=== PATIENT | male | born 1985 | race Caucasian/White ===

== ENCOUNTER 2023-02-27 09:41 | Outpatient (REF) | payer OTHER, SELFPAY ==
[2023-02-27 11:31] LABS: MANUAL DIFF FLAG NO
[2023-02-27 11:38] LABS: Appearance Urine Clear; Basophils Absolute Auto 0.1 X10*3/uL (0.0-0.2); Basophils Percent Auto 1.1 % (0-2); Color Urine Yellow; Eosinophils Absolute Auto 0.2 X10*3/uL (0.0-0.4); Eosinophils Percent Auto 3.4 % (0-4); Glucose Urine UA Negative (Negative); Hemoglobin 13.8 g/dl (14.0-18.0); Imm Gran Abs Auto 0.03 X10*3/uL (0.00-0.03); Imm Gran Pct Auto 0.5 % (0.0-0.4); Leukocyte Esterase Urine Negative (Negative); Lymphocytes Absolute Auto 1.6 X10*3/uL (1.2-4.9); Lymphocytes Percent Auto 25.2 % (20-40); Mean Corpuscular HGB Conc 34.5 g/dl (31.0-36.0); Mean Corpuscular Hemoglobin 27.5 pg (27.0-33.0); Mean Corpuscular Volume 79.8 fL (80.0-98.0); Mean Platelet Volume 9.7 fL (9.4-12.4); Monocytes Absolute Auto 0.7 X10*3/uL (0.1-1.2); Monocytes Percent Auto 10.3 % (2-11); Neutrophils Absolute Auto 3.9 x10*3/uL (2.0-8.3); Neutrophils Percent Auto 59.5 % (45-73); Nitrite Urine Negative (Negative); PH 6.5 (5.0-9.0); Platelet Count 274 X10*3/uL (160-400); Red Blood Count 5.01 X10*6/uL (4.60-5.80); Red Cell Distribution Width 11.7 % (11.0-16.0); Specific Gravity - Urine <= 1.005 (1.005-1.025); Urine Blood Negative (Negative); Urine Ketones Negative (Negative); Urine Protein Negative (Neg-Trace); White Blood Count 6.5 X10*3/uL (4.8-10.8)
[2023-02-27 13:00] LABS: Alanine Aminotransferase 58 U/L (0-40); Albumin Level 4.1 g/dL (3.5-5.0); Alkaline Phosphatase 75 U/L (39-117); Anion Gap 11 (12-20); Aspartate Amino Transferase 27 U/L (5-37); Bilirubin Total 1.1 mg/dL (0.0-1.0); Blood Urea Nitrogen 12 mg/dL (9-16); Carbon Dioxide 27 mmol/L (22-29); Chloride 103 mmol/L (96-108); Cholesterol 198 mg/dL; Estimated Glomerular Filt Rate > 60; Glucose Fasting 83 mg/dL (60-99); HDL Cholesterol 32 mg/dL; LDL Cholesterol Calculated 115 mg/dl; Potassium 3.9 mmol/L (3.3-5.1); Sodium 137 mmol/L (135-145); Total Protein 6.8 g/dL (6.5-8.0); Triglycerides 255 mg/dL
[2023-02-27 13:04] LABS: TSH reflex Free T4 1.25 uIU/mL (0.32-4.0)
== END 2023-02-27 09:42 | disposition home or self-care (01) ==
LOC: HO.HMGCLDS 09:41
PROVIDERS: PCP Nurse Practitioner Family; Visit Provider Nurse Practitioner Family
DX: Z00.00 Encounter for general adult medical examination without abnormal findings (principal)
CPT/HCPCS: 36415; 80053; 80061; 81003; 84443; 85025

== ENCOUNTER 2024-02-10 11:25 | Outpatient (AMB) | payer OTHER, SELFPAY ==
[2024-02-10 11:27] VITALS: BP 118/70; PULSE 62; TEMP 37.1; O2SAT 98
--- NOTE | 2024-02-10 11:27 | AM.OFFWIN_ITS ---
Intake Vital Signs 02/10/24 11:27 Height 6 ft BP 118/70 Blood Pressure Location Lt brachial Position Sitting Pulse 62 Pulse Source Pulse Oximeter Temp 98.7 F Temp Source Oral Pulse Oximetry (%) 98 Oxygen Delivery Method Room Air Intake Visit Reasons: EP mosquito bite allergic reaction face swollen Intake Note: pt is here for allergic reaction to mosquito bite. bite happened on face causing swelling Patient Tobacco Use Status: Never used Tobacco Allergies No Known Allergies Allergy (Verified 02/10/24 11:28) Do you need a note to return to daycare/school/sports/work: Yes HPI EP mosquito bite allergic reaction face swollen HPI Details This is a 38-year-old male patient who presents today with facial swelling and itching due to report of multiple insect bites to his face. He suspects these were mosquito bites, as a similar reaction has happened in the past. He states that this started Thursday, and facial swelling has worsened. He also reports a bite on his foreskin which has also resulted in swelling. He denies any shortness of breath, wheezing, or respiratory symptoms. He states that he took a Benadryl this morning with minimal relief. [facility] Social History Housing: Condominium Patient Tobacco Use Status: Never used Tobacco e-Cigarette/Vaping Use: Never Used Second Hand Smoke Exposure: No service: No Current occupational status: employed Current occupation: [employer] Current occupational exposures/hazards: No Cognitive needs: No Hearing needs: No Vision needs: No Review of Systems Const All systems reviewed & are unremarkable except as noted in HPI and below Physical Exam Vital Signs: Last Vital Signs Temp 98.7 F 02/10/24 11:27 Pulse 62 02/10/24 11:27 BP 118/70 02/10/24 11:27 Pulse Ox 98 02/10/24 11:27 Oxygen Delivery Method Room Air 02/10/24 11:27 Const General: cooperative HEENT Other: significant facial swelling, particularly around eyes and cheeks. Ears: hearing grossly normal bilaterally General nose exam: Normal external nose present and Normal nasal mucous membranes and turbinates present Mouth: Normal oral and palatal mucosa present Throat: Yes posterior oropharynx normal Neck Neck: Yes no lymphadenopathy Resp Effort & Inspection: normal respiratory effort Auscultation: clear to auscultation bilaterally Cardio Rate: regular rate Rhythm: regular rhythm Skin Other: mild erythematous rash on upper arms Extrem General: Yes capillary refill normal and Yes no clubbing, cyanosis or edema Psych Appearance: grossly normal Mental Status: mental status grossly normal Speech and movement: Normal speech and movement present Assessment & Plan Assessment & Plan (1) Allergic reaction to insect bite: Code(s): Z91.038 - Other insect allergy status Plan: Will start patient on prednisone taper for allergic reaction. He has taken this previously, without negative side effects. We reviewed indications, use, potential side effects of medication. I also encouraged him to continue to utilize Benadryl at bedtime. If he does not improve with treatment, or if symptoms worsen/new symptoms develop, particularly any respiratory symptoms, he should go to the emergency department for further evaluation. Patient verbalizes understanding and agrees to plan. Medications: New prednisone Take 4 tabs for two days, then take 3 tabs for two days, then take 2 tabs for two days, then take 1 tab for 2 days. 10 mg PO DAILY 20 tabs 0RF Z91.038 - Other insect allergy status Coding Level of Care Code Est Pt Level 4 (29380) Diagnoses Allergic reaction to insect bite Z91.038
== END 2024-02-10 11:46 | disposition home or self-care (01) ==
PROVIDERS: PCP Nurse Practitioner Family; Visit Provider Nurse Practitioner Family
DX: Z91.038 Other insect allergy status (principal)
CPT/HCPCS: 99214

== ENCOUNTER 2024-02-17 14:27 | Outpatient (AMB) | payer OTHER, SELFPAY ==
--- NOTE | 2024-02-17 14:35 | MHC.PC.OV ---
Vital Signs 02/17/24 14:39 Height 6 ft Weight 226 lb BMI 30.6 BP 130/88 Blood Pressure Location Lt brachial Position Sitting Pulse 57 Pulse Source Pulse Oximeter Pulse Oximetry (%) 95 Oxygen Delivery Method Room Air Intake Visit Reasons: PE Intake Note: Patient here for physical exam. Allergies No Known Allergies Allergy (Verified 02/17/24 14:54) Tobacco use date assessed: 02/17/24 Dental Screening Dental Screen Date: 02/17/24 Did you have a dental visit in the last 12 months?: Yes Did you have a dental problem in the last 6 months where you did not have access to dental care?: No Was dental information given to patient?: Patient has dentist HPI PE HPI Details Pt is here for a PE. Will order labs. Pt c/o facial swelling and redness to his BUE, bilat upper chest, lumbar region, right flank, and face. He reports being bitten by what he thinks was a mosquito and noticing symptoms after. Pt's mom reportedly has had similar reactions. Pt was seen in the walk-in for this on 02/09 and was given prednisone. He reports that his symptoms are decreasing but are still present. Will send 12 day prednisone taper. Pt has not had any shortness of breath with these symptoms at any point. [facility] Social History Housing: Condominium Patient Tobacco Use Status: Never used Tobacco e-Cigarette/Vaping Use: Never Used Second Hand Smoke Exposure: No service: No Current occupational status: employed Current occupation: [employer] Current occupational exposures/hazards: No Cognitive needs: No Hearing needs: No Vision needs: No Questionnaire PHQ-9 Over the last 2 weeks, how often have you been bothered by any of the following problems? 07376 - PHQ-9 Billing: Patient declined-do not bill Source: Developed by Drs. Charles Marmolejo, Annita Mays, Samuel Sheffield and colleagues, with an educational gemma from [employer]. AUDIT C Alcohol Use Questionnaire (AUDIT-C) 1. How often do you have a drink containing alcohol?: Never 3. How often do you have six or more drinks on one occasion?: Never Total Score: 0 Score Reviewed/Action Taken: No ZULY-7 AMB Questionnaire ZULY-7 Assessment Billing ZULY-7 Assessment Tool: pt declined-do not bill Review of Systems Const Denies chills and Denies fever(s) Eyes Denies blurry vision ENT Denies vertigo, Denies dizziness and Denies sore throat Card Denies chest pain at rest, Denies chest pain with activity, Denies diaphoresis, Denies dyspnea and Denies dyspnea on exertion Resp Denies cough, Denies dyspnea, Denies dyspnea on exertion and Denies wheezing GI Denies abdominal pain, Denies melena, Denies hematochezia, Denies constipation, Denies diarrhea and Denies loose stools Denies hematuria Musc Denies numbness and Denies tingling Skin/Breast Denies lesions Neuro Denies vertigo, Denies dizziness, Denies numbness and Denies tingling Psych Denies anxiety, Denies depression, Denies homicidal ideation, Denies suicidal ideation and Denies other (substance abuse) Aller/Immun Denies wheezing Physical exam (Primary Care) Vital Signs: Last Vital Signs Pulse 57 02/17/24 14:39 BP 130/88 02/17/24 14:39 Pulse Ox 95 02/17/24 14:39 Oxygen Delivery Method Room Air 02/17/24 14:39 BMI result Body Mass Index 30.6 Tobacco/Smoking Status: Tobacco use Status Tobacco use date assessed 02/17/24 02/17/24 14:42 Patient Tobacco Use Status Never used Tobacco 02/17/24 14:36 e-Cigarette/Vaping Use Never Used 02/17/24 14:36 Const General: cooperative Nutritional Appearance: well nourished Orientation/consciousness: patient oriented x3 HENMT Head: Yes normal to inspection, Yes normocephalic and Yes atraumatic Ears: TM's normal bilaterally Eyes General: appearance normal, both eyes and all related structures Alignment and Position: alignment normal and position normal Neck Neck: Yes normal visual inspection and Yes no lymphadenopathy Thyroid: Thyroid normal Resp Effort & Inspection: normal respiratory effort Auscultation: clear to auscultation bilaterally Cardio Rate: regular rate Rhythm: regular rhythm Heart sounds: S1 normal heart sound present, S2 normal heart sound present and no murmurs GI Palpation (GI): Soft to palpation and nontender Auscultation: normal bowel sounds Male General Exam: Yes normal external exam Penis: normal penis Scrotum: scrotum normal, testes descended bilaterally and no inguinal hernias Testes: no testicular mass Skin Other: left bicep with macular erythema, more macular papular patch of erythema to left upper chest, faded macular patch to right upper chest, macular patch to upper lumbar region, macular erythema to left tricep region, macular erythema to right flank, macular dry erythema to right facial cheek Neuro General: patient oriented x3, moves all extremities, no focal motor deficits and deep tendon reflexes 2+ bilaterally Romberg Test: Negative Psych Appearance: grossly normal Mental Status: mental status grossly normal Speech and movement: Normal speech and movement present Affect: normal affect Attitude: cooperative Thought process: Normal thought process present Thought content: Normal thought content present Insight: Good insight present (Psych) Judgement: Good judgement present (Psych) Assessment and Plan Assessment & Plan (1) Encounter for routine adult physical exam with abnormal findings: Code(s): Z00.01 - Encounter for general adult medical examination with abnormal findings (2) Allergic reaction: Code(s): T78.40XA - Allergy, unspecified, initial encounter Plan: prednisone sent (original course helped). Pt knows to contact immediate medical assistance with s/s of anaphylaxis. Plan The patient agreed to the use of a medical and health services manager for this encounter. Scribed for WALI Perez-BC by Angi Lockhart medical and health services manager, on 02/17/2024 at 14:45 EST. Orders: Orders Complete Blood Count Auto Diff Today Z00. - Encounter for general adult medical examination with abnormal findings Comprehensive [place]. Panel Fast Today Z00. - Encounter for general adult medical examination with abnormal findings UA CC w/rflx Micro + Cult Today Z00. - Encounter for general adult medical examination with abnormal findings TSH reflex Free T4 Today Z00. - Encounter for general adult medical examination with abnormal findings Lipid Panel Today Z00. - Encounter for general adult medical examination with abnormal findings Medications: Changed From prednisone Take 4 tabs for two days, then take 3 tabs for two days, then take 2 tabs for two days, then take 1 tab for 2 days. 10 mg PO DAILY 20 tabs 0RF Z91.038 - Other insect allergy status To prednisone Take 6 tabs for 2 days, 5 tabs for 2 days, 4 tabs for two days, then take 3 tabs for two days, then take 2 tabs for two days, then take 1 tab for 2 days. 10 mg PO DAILY 12 days 42 tabs 0RF Z91.038 - Other insect allergy status Coding Level of Care Code Est Pt Prev Care 18-39y(03632) Diagnoses Encounter for routine adult physical exam with abnormal findings Z00.01 Allergic reaction T78.40XA
[2024-02-17 14:39] VITALS: BP 130/88; PULSE 57; O2SAT 95; BMI 30.6
== END 2024-02-17 15:19 | disposition home or self-care (01) ==
PROVIDERS: Visit Provider Nurse Practitioner Family
DX: Z00.01 Encounter for general adult medical examination with abnormal findings (principal); T78.40XA Allergy, unspecified, initial encounter
CPT/HCPCS: 99213; 99395

== ENCOUNTER 2024-03-07 08:10 | Outpatient (REF) | payer OTHER, SELFPAY ==
[2024-03-07 10:14] LABS: MANUAL DIFF FLAG NO
[2024-03-07 10:17] LABS: Basophils Percent Auto 0.6 % (0-2); Eosinophils Absolute Auto 0.3 X10*3/uL (0.0-0.4); Hematocrit 41.7 % (42.0-52.0); Hemoglobin 14.5 g/dl (14.0-18.0); Imm Gran Abs Auto 0.02 X10*3/uL (0.00-0.03); Imm Gran Pct Auto 0.4 % (0.0-0.4); Lymphocytes Absolute Auto 1.5 X10*3/uL (1.2-4.9); Mean Corpuscular HGB Conc 34.8 g/dl (31.0-36.0); Mean Corpuscular Hemoglobin 28.2 pg (27.0-33.0); Mean Corpuscular Volume 81.1 fL (80.0-98.0); Mean Platelet Volume 9.7 fL (9.4-12.4); Monocytes Absolute Auto 0.6 X10*3/uL (0.1-1.2); Neutrophils Absolute Auto 2.8 x10*3/uL (2.0-8.3); Platelet Count 272 X10*3/uL (160-400); Red Blood Count 5.14 X10*6/uL (4.60-5.80); Red Cell Distribution Width 11.6 % (11.0-16.0); White Blood Count 5.2 X10*3/uL (4.8-10.8)
[2024-03-07 10:21] LABS: Appearance Urine Clear; Color Urine Yellow; Glucose Urine UA Negative (Negative); Leukocyte Esterase Urine Negative (Negative); Nitrite Urine Negative (Negative); Specific Gravity - Urine 1.015 (1.005-1.025); Urine Blood Negative (Negative); Urine Ketones Negative (Negative); Urine Protein Negative (Neg-Trace)
[2024-03-07 10:49] LABS: Alanine Aminotransferase 46 U/L (0-40); Albumin Level 4.3 g/dL (3.5-5.0); Alkaline Phosphatase 70 U/L (39-117); Anion Gap 12 (12-20); Aspartate Amino Transferase 26 U/L (5-37); Bilirubin Total 1.2 mg/dL (0.0-1.0); Blood Urea Nitrogen 15 mg/dL (9-16); Calcium 9.6 mg/dL (8.4-10.2); Carbon Dioxide 27 mmol/L (22-29); Chloride 105 mmol/L (96-108); Cholesterol 222 mg/dL (<200); Estimated Glomerular Filt Rate > 60; Glucose Fasting 92 mg/dL (60-99); HDL Cholesterol 37 mg/dL (>40); LDL Cholesterol Calculated 154 mg/dL (<100); Potassium 3.9 mmol/L (3.3-5.1); Sodium 140 mmol/L (135-145); TSH reflex Free T4 1.38 uIU/mL (0.32-4.0); Triglycerides 157 mg/dL (<150)
== END 2024-03-07 08:11 | disposition home or self-care (01) ==
LOC: HO.HMGCLDS 08:10
PROVIDERS: PCP Nurse Practitioner Family; Visit Provider Nurse Practitioner Family
DX: Z00.01 Encounter for general adult medical examination with abnormal findings (principal)
CPT/HCPCS: 36415; 80053; 80061; 81003; 84443; 85025

== ENCOUNTER 2024-04-04 08:24 | Outpatient (REF) | payer OTHER, SELFPAY ==
--- NOTE | ~2024-04-04 | US_ITS ---
EXAMINATION: US ABDOMEN COMPLETE CLINICAL INFORMATION: Abnormal levels of other serum enzymes. COMPARISON: None available. TECHNIQUE: Real-time imaging of the abdominal viscera. FINDINGS: PANCREAS: Normal. ABDOMINAL AORTA: The proximal, mid, and distal segments are normal in caliber. INFERIOR VENA CAVA: Visualized portions are normal. LIVER: The liver is normal in size. The liver contour is normal. Diffuse increased echogenicity consistent with fatty infiltration. No focal hepatic lesion. There is no intrahepatic biliary duct dilatation seen. GALLBLADDER: Normal. The gallbladder is physiologically distended without evidence of stones, sludge, polyps, wall thickening or pericholecystic fluid. COMMON BILE DUCT: Normal in caliber measuring 0.2 cm in diameter. RIGHT KIDNEY: Normal. No hydronephrosis. No renal calculi or focal parenchymal lesions. The kidney measures 11.4 cm in maximum dimension. LEFT KIDNEY: Normal. No hydronephrosis. No renal calculi or focal parenchymal lesions. The kidney measures 11.5 cm in maximum dimension. SPLEEN: Normal. The spleen measures 12.0 cm in maximum dimension. FREE FLUID: None. US/US abdomen complete IMPRESSION: Hepatic steatosis. No focal lesion. No biliary ductal dilatation. Electronically signed by: Freedom Solis MD 04/22/2024 02:36 PM EDT
== END 2024-04-04 08:25 | disposition home or self-care (01) ==
LOC: HO.US 08:24
PROVIDERS: PCP Nurse Practitioner Family; Visit Provider Nurse Practitioner Family
DX: R74.8 Abnormal levels of other serum enzymes (principal)
CPT/HCPCS: 76700

== ENCOUNTER 2025-03-13 15:05 | Outpatient (AMB) | payer OTHER, SELFPAY ==
[2025-03-13 15:10] VITALS: BP 130/88; PULSE 60; RESP 16; TEMP 36.9; O2SAT 95; BMI 29.3
--- NOTE | 2025-03-13 15:10 | MHC.PC.OV ---
Vital Signs 03/13/25 15:10 Height 6 ft Weight 216 lb BMI 29.3 BP 130/88 Blood Pressure Location Lt brachial Position Sitting Respiration 16 Pulse 60 Pulse Source Pulse Oximeter Temp 98.5 F Temp Source Oral Pulse Oximetry (%) 95 Oxygen Delivery Method Room Air Intake Visit Reasons: PE Finance Administrator Required: No Accompanied by: Self / Same As Patient Allergies No Known Allergies Allergy (Verified 03/13/25 15:42) Medication List - Last Reconciled 03/13/25 by JIAN Bartlett No Known Home Meds Tobacco use date assessed: 02/17/24 Dental Screening Dental Screen Date: 03/13/25 Did you have a dental visit in the last 12 months?: Yes Did you have a dental problem in the last 6 months where you did not have access to dental care?: No Was dental information given to patient?: Patient has dentist HPI PE HPI Details History of Present Illness The patient is a 39-year-old male presenting for a routine physical examination. He reports experiencing allergic reactions easily and has a fair skin type. ? a history of eczema, particularly between the fingers/hands, which improves with regular use of lotion. The condition is suspected to be atopic dermatitis. Health Maintenance Social History Review of Systems - General: Denies chest pain, shortness of breath, abdominal pain, diarrhea, constipation, suicidal ideation, or homicidal ideation. Physical Exam General: Cooperative, healthy appearing, comfortable, no acute distress and well developed Orientation: Patient oriented x3 Limitations: No limitations Head: Normal to inspection Ears: Hearing grossly normal bilaterally Nose: Normal external nose present Face and sinus: Normal facial exam Eyes: Appearance normal, both eyes and all related structures Neck: Normal visual inspection and Yes full ROM Respiratory: Normal respiratory effort and able to speak in complete sentences. Clear to auscultation bilaterally Cardiovascular: Regular rate and rhythm. Normal S1 and S2 GI: Normal to inspection. Soft to palpation and nontender : testicles without masses/lesions and no hernias appreciated Skin: ? Eczema noted between fingers 3 and 4 on the left hand (faint macular erythema) Neuro: Patient oriented x3 Extremities: Normal to inspection Results Plan The patient should continue using lotion regularly to manage eczema and atopic dermatitis symptoms. If skin conditions worsen or new rashes appear, a referral to a traffic control flagger may be considered. Routine laboratory tests will be arranged in the near future to monitor overall health. Discussion Notes I discussed with the patient the importance of regular moisturizing to manage his eczema and atopic dermatitis. I advised him to contact me if his skin condition worsens or if he notices any new rashes. We also planned to conduct routine laboratory tests soon to ensure his overall health is maintained. Patient Instructions - Use lotion regularly to manage eczema and atopic dermatitis. - Contact the doctor if skin conditions worsen or new rashes appear. - Expect to have routine lab tests soon. [facility] Patient Tobacco Use Status: Never used Tobacco e-Cigarette/Vaping Use: Never Used Second Hand Smoke Exposure: No service: No Current occupational status: employed Current occupation: [employer] Current occupational exposures/hazards: No Cognitive needs: No Hearing needs: No Vision needs: No Questionnaire PHQ-9 Over the last 2 weeks, how often have you been bothered by any of the following problems? 1. Little interest or pleasure in doing things: several days 2. Feeling down, depressed, or hopeless: several days 3. Trouble falling or staying asleep, or sleeping too much: more than half the days 4. Feeling tired or having little energy: several days 5. Poor appetite or overeating: several days 6. Feeling bad about yourself - or that you are a failure or have let yourself or your family down: several days 7. Trouble concentrating on things, such as reading the newspaper or watching television: several days 8. Moving or speaking so slowly that other people could have noticed. Or the opposite - being so fidgety or restless that you have been moving around a lot more than usual: not at all 9. Thoughts that you would be better off or of hurting yourself in some way: not at all Total score: 8 Depression Screening Interpretation: Positive (denies any si or hi) Depression Screening Follow-up: Existing condition Depression Screening Done: Yes 70394 - PHQ-9 Billing: Yes Source: Developed by Drs. Charles Marmolejo, Annita Mays, Samuel Sheffield and colleagues, with an educational gemma from [employer]. Thrive Questionnaire Date Thrive assessed: 03/06/25 I am a: Patient What is your living situation today?: I have a steady place to live Within the past 12 months, did the food you bought not last and you didn't have the money to get more?: Never true Within the past 12 months, did you worry whether your food would run out before you got money to buy more?: Never true Do you have trouble paying for medicines?: No Do you have trouble getting transportation to medical appointments?: No Do you have trouble paying your heating and electricity bill?: No Do you have trouble taking care of your child, family member or friend?: No Do you have trouble with day-to-day activities such as bathing, preparing meals, shopping, managing finances, etc.?: No Are you currently unemployed and looking for a job?: No Are you interested in more education?: No Please select the resources that you would like help with: None Currently or been in a relationship where the following occur: No concerns reported THRIVE Score: 0 AUDIT C Alcohol Use Questionnaire (AUDIT-C) 1. How often do you have a drink containing alcohol?: Monthly or less 2. How many drinks containing alcohol do you have on a typical day when you are drinking?: 1 or 2 3. How often do you have six or more drinks on one occasion?: Never Total Score: 1 ZULY-7 AMB Questionnaire ZULY-7 Date ZULY - 7 assessed: 03/13/25 Feeling nervous, anxious, or on edge: 1 = Several days Not being able to stop or control worryin = Not at all Worrying too much about different things: 0 = Not at all Trouble relaxin = Several days Being so restless that it is hard to sit still: 1 = Several days Becoming easily annoyed or irritable: 1 = Several days Feeling afraid as if something awful might happen: 1 = Several days Total ZULY-7 score (0-4 normal; 5-9 mild; 10-14 moderate; 15-21 severe): 5 Source: Developed by Drs. Charles Marmolejo, Annita Mays, Samuel Sheffield and colleagues, with an educational gemma from [employer] ZULY-7 Assessment Billing ZULY-7 Assessment Tool: ZULY-7 Assessment 71910 Physical exam (Primary Care) Vital Signs: Last Vital Signs Temp 98.5 F 03/13/25 15:10 Pulse 60 03/13/25 15:10 Resp 16 03/13/25 15:10 BP 130/88 03/13/25 15:10 Pulse Ox 95 03/13/25 15:10 Oxygen Delivery Method Room Air 03/13/25 15:10 BMI result Body Mass Index 29.3 Tobacco/Smoking Status: Tobacco use Status Tobacco use date assessed 02/17/24 03/13/25 15:16 Patient Tobacco Use Status Never used Tobacco 03/13/25 15:16 e-Cigarette/Vaping Use Never Used 03/13/25 15:16 PHQ-9: PHQ-9 Score PHQ-9: Total score 8 03/13/25 15:16 Depression Screening Interpretation: Positive (denies any si or hi) Depression Screening Follow-up: Existing condition Thrive Assessment: Date of Thrive Assessment Date Thrive assessed 03/06/25 03/13/25 15:16 Currently or been in a relationship where the following occur: No concerns reported Coding Level of Care Code Est Pt Prev Care 18-39y(35267) Diagnoses Physical exam Z00. Additional Codes ZULY-7 Assessment Billing - ZULY-7 Assessment Tool: ZULY-7 Assessment 50940 ([id number]) PHQ-9 - 85455 - PHQ-9 Billing: Yes ([id number]) Assessment & Plan Assessment & Plan (1) Physical exam: Code(s): Z00.00 - Encounter for general adult medical examination without abnormal findings Category: Medical Plan . Orders: Orders Comprehensive [place]. Panel Fast Today Z00.00 - Encounter for general adult medical examination without abnormal findings UA CC w/rflx Micro + Cult Today Z00.00 - Encounter for general adult medical examination without abnormal findings Complete Blood Count Auto Diff Today Z00.00 - Encounter for general adult medical examination without abnormal findings TSH reflex Free T4 Today Z00.00 - Encounter for general adult medical examination without abnormal findings Lipid Panel Today Z00.00 - Encounter for general adult medical examination without abnormal findings
== END 2025-03-13 15:49 | disposition home or self-care (01) ==
LOC: HO.HMCC 15:06
PROVIDERS: PCP Nurse Practitioner Family; Visit Provider Nurse Practitioner Family
DX: Z00.00 Encounter for general adult medical examination without abnormal findings (principal)

== ENCOUNTER → 2025-03-13 15:05 | Outpatient (BNVA) | payer OTHER, SELFPAY | PROVIDERS: PCP Nurse Practitioner Family; Visit Provider Nurse Practitioner Family | DX: Z00.00 Encounter for general adult medical examination without abnormal findings (principal) | CPT/HCPCS: 96127 ==

== ENCOUNTER 2025-03-21 07:47 | Outpatient (REF) | payer OTHER, SELFPAY ==
[2025-03-21 10:07] LABS: MANUAL DIFF FLAG NO
[2025-03-21 10:14] LABS: Hematocrit 38.5 % (42.0-52.0); Hemoglobin 13.4 g/dl (14.0-18.0); Imm Gran Abs Auto 0.02 X10*3/uL (0.00-0.03); Imm Gran Pct Auto 0.4 % (0.0-0.4); Lymphocytes Absolute Auto 1.9 X10*3/uL (1.2-4.9); Mean Corpuscular HGB Conc 34.8 g/dl (31.0-36.0); Mean Corpuscular Hemoglobin 28.2 pg (27.0-33.0); Mean Corpuscular Volume 80.9 fL (80.0-98.0); NRBC Abs Auto 0.000 X10*3/uL (0.0-0.012); NRBC Pct Auto 0.0 /100WBC (0.0-0.2); Platelet Count 280 X10*3/uL (160-400); Red Blood Count 4.76 X10*6/uL (4.60-5.80); White Blood Count 5.5 X10*3/uL (4.8-10.8)
[2025-03-21 10:26] LABS: Appearance Urine Clear; Glucose Urine UA Negative (Negative); PH 6.0 (5.0-9.0); Specific Gravity - Urine 1.015 (1.005-1.025)
[2025-03-21 10:52] LABS: Alanine Aminotransferase 31 U/L (0-40); Albumin Level 4.3 g/dL (3.5-5.0); Alkaline Phosphatase 80 U/L (39-117); Anion Gap 7 (12-20); Aspartate Amino Transferase 25 U/L (5-37); Blood Urea Nitrogen 20 mg/dL (9-16); Calcium 8.7 mg/dL (8.4-10.2); Carbon Dioxide 30 mmol/L (22-29); Chloride 106 mmol/L (96-108); Cholesterol 185 mg/dL (<200); Estimated Glomerular Filt Rate > 60; HDL Cholesterol 31 mg/dL (>40); Potassium 4.0 mmol/L (3.3-5.1); Sodium 139 mmol/L (135-145); Total Protein 6.7 g/dL (6.5-8.0); Triglycerides 163 mg/dL (<150)
== END 2025-03-21 07:48 | disposition home or self-care (01) ==
LOC: HO.HMGCLDS 07:47
PROVIDERS: PCP Nurse Practitioner Family; Visit Provider Nurse Practitioner Family
DX: Z00.00 Encounter for general adult medical examination without abnormal findings (principal)
CPT/HCPCS: 36415; 80053; 80061; 81003; 84443; 85025

== ENCOUNTER 2025-05-26 09:21 | Outpatient (REF) | payer OTHER, SELFPAY ==
[2025-05-26 10:06] LABS: MANUAL DIFF FLAG NO
[2025-05-26 10:18] LABS: Hematocrit 41.4 % (42.0-52.0); Hemoglobin 14.0 g/dl (14.0-18.0); Imm Gran Abs Auto 0.02 X10*3/uL (0.00-0.03); Imm Gran Pct Auto 0.3 % (0.0-0.4); Lymphocytes Absolute Auto 1.8 X10*3/uL (1.2-4.9); Mean Corpuscular HGB Conc 33.8 g/dl (31.0-36.0); Mean Corpuscular Hemoglobin 27.3 pg (27.0-33.0); Mean Corpuscular Volume 80.7 fL (80.0-98.0); NRBC Abs Auto 0.000 X10*3/uL (0.0-0.012); NRBC Pct Auto 0.0 /100WBC (0.0-0.2); Platelet Count 302 X10*3/uL (160-400); Red Blood Count 5.13 X10*6/uL (4.60-5.80); Reticulocytes Absolute 0.093 X10*6/uL (0.026-0.095); White Blood Count 6.8 X10*3/uL (4.8-10.8)
[2025-05-26 11:03] LABS: Alanine Aminotransferase 27 U/L (0-40); Albumin Level 4.5 g/dL (3.5-5.0); Alkaline Phosphatase 93 U/L (39-117); Anion Gap 9 (12-20); Aspartate Amino Transferase 25 U/L (5-37); Blood Urea Nitrogen 14 mg/dL (9-16); Calcium 9.2 mg/dL (8.4-10.2); Carbon Dioxide 30 mmol/L (22-29); Chloride 104 mmol/L (96-108); Estimated Glomerular Filt Rate > 60; Iron 82 mcg/dL (45-160); Percent Iron Saturation 33 % (15-50); Potassium 4.1 mmol/L (3.3-5.1); Sodium 139 mmol/L (135-145); Total Iron Binding Capacity 245 mcg/dL (228-428); Total Protein 7.2 g/dL (6.5-8.0); Unsaturated Iron Binding 163 ug/dL
[2025-05-26 11:29] LABS: Folate 14.3 ng/mL (> or = 4.0); Vitamin B12 368 pg/mL (200-900)
[2025-05-26 11:32] LABS: Ferritin 213 ng/mL (20-250)
== END 2025-05-26 09:22 | disposition home or self-care (01) ==
LOC: HO.HMGCLDS 09:21
PROVIDERS: PCP Nurse Practitioner Family; Visit Provider Nurse Practitioner Family
DX: D64.9 Anemia, unspecified (principal)
CPT/HCPCS: 36415; 80053; 82607; 82728; 82746; 83540; 83615; 85025; 85045

== ENCOUNTER 2025-05-26 13:12 | Emergency (ER) | payer OTHER, SELFPAY ==
[2025-05-26 13:38] VITALS: BP 147/70; PULSE 60; RESP 20; TEMP 37; O2SAT 98; BMI 29.5
--- NOTE | 2025-05-26 13:55 | ED_ITS ---
HPI - Animal Bite General Chief Complaint: Animal Bite Stated Complaint: dog bite Time Seen by Provider: 05/26/25 16:13 Source: patient, RN notes reviewed and old records reviewed Mode of arrival: ambulatory Limitations: no limitations History of Present Illness ED Provider: Diann FREEDMAN narrative: 39-year-old male presents for evaluation of a dog bite that occurred 4 days ago. Patient reports that he was bit by a dog that is not known to him. He was bit on the back of the left calf he is unsure of the dog's rabies vaccine status. The patient reports minimal discomfort. He has a fairly superficial wound that he applied Neosporin to. Denies any significant redness, drainage from the wound. He called his primary doctor who recommended he come to the ER for rabies vaccin e Related Data Home Medications ?Medication ?Instructions ?Recorded ?Confirmed No Known Home Meds 03/13/25 03/13/25 Allergies Allergy/AdvReac Type Severity Reaction Status Date / Time No Known Allergies Allergy Verified 05/26/25 13:41 Review of Systems Constitutional: Constitutional: Denies body ache(s), Denies chills and Denies fever(s) Gastrointestinal: Gastrointestinal: Denies abdominal pain Integumentary/Breasts: Skin/Breast: Reports wounds Psychiatric: Psychiatric: Denies anxiety [facility] Social History Social History Housing: Condominium Patient Tobacco Use Status: Never used Tobacco e-Cigarette/Vaping Use: Never Used Second Hand Smoke Exposure: No Advance Directives: No Advance Directives Information Provided: No service: No Current occupational status: employed Current occupation: [employer] Current occupational exposures/hazards: No Cognitive needs: No Hearing needs: No Vision needs: No Physical Exam ED Vital Signs: Vital Signs - 24 hr 05/26/25 13:38 Temperature 98.6 F Pulse Rate 60 Respiratory Rate 20 Blood Pressure 147/70 H Pulse Oximetry 98 Oxygen Delivery Method Room Air BMI result Body Mass Index 29.5 Extrem Other: patient has a fairly superficial abrasion to the superior aspect of the left posterior calf. There is surrounding granulomatous tissue and ecchymosis, no beefy red erythema, no deep puncture or laceration. The patient has minimal tenderness Course Course Course Narrative: This is an RME: Additional HPI, ROS, PE not included below will be deferred to primary provider. RME assessment and note performed by: Tegan Blevins PA-C This is a 39-year-old male who presents emergency department with concerns of dog bite to left posterior leg. Patient was bit by an unknown dog. He called his primary care physician and was told to report to the emergency room for rabies. He has never had the rabies vaccine series. Unknown last Tdap. Small animal bite noted to the posterior left leg. Plan: Rabies series, tetanus Medications Administered Discontinued Medications Generic Name Dose Route Start Last Admin Trade Name Freq PRN Reason Stop Dose Admin Diphtheria/Tetanus/Acell Pertussis 0.5 ml 05/26/25 13:55 05/26/25 16:17 Diphth,Pertus(Acell),Tet Adult 0.5 Ml Syringe IM 05/26/25 13:56 0.5 ml .ONCE ONE Administration Rabies Immune Globulin 1,975.84 unit 05/26/25 13:55 05/26/25 16:15 Rabies Immune Globulin/Pf 1,500 Unit/5 Ml Vial 20 unit/kg (1975.84 unit) 05/26/25 13:56 1,975.84 unit IM Administration ONCE ONE Rabies Vaccine 1 ml 05/26/25 13:55 05/26/25 16:15 Rabies Vaccine (Pcec)/Pf 1 Ml Vial IM 05/26/25 13:56 1 ml .ONCE ONE Administration Medical Decision Making Medical Decision Making MDM Narrative: 39-year-old male presents for evaluation of a dog bite from an unknown dog. He appears to be very superficial wound. There was no evidence of active infection in the bite was 4 days ago, I have a low suspicion that this will become infected at this point. I did discuss possible antibiotics with the patient and he would like to defer at this time. The patient's tetanus was updated and he was started on the rabies vaccine series. Differential Diagnosis Differential Diagnoses: The differential diagnosis associated with the presentation includes Dog bite Puncture wound Abrasion Laceration Rabies exposure Discharge Plan Discharge Clinical Impression: Dog bite Patient Disposition: Home, Self-Care Instructions: Animal Bite (ED), Rabies (ED) Additional Instructions: Rabies follow up with the [facility] Infusion Center: Upon discharge from the ED today, you will be contacted by the Infusion Center to schedule your follow up Rabies vaccines. You will need a total of 3 more injections. If for some reason you do not receive a call, please call the Infusion Center directly at [phone]. Follow up with your primary care provider after completion of the vaccine to have a titer drawn to ensure the vaccines effectiveness. some dog bites get infected easily. Given that your bite was 4 days ago and does not appear infected, we are not giving antibiotics at this time. Monitor for signs of redness, swelling or increasing pain Prescriptions: No Action No Known Home Meds Print Language: Greenlandic
[2025-05-26] MEDS: Rabies Vaccine (PCEC)/PF 1 ML VIAL IM (16:15)
[2025-05-26] MEDS: Diphth,Pertus(ACell),Tet Adult 0.5 ML SYRINGE IM (16:17)
--- NOTE | 2025-05-26 16:27 | PC.NURSE ---
Spoke to Aditi (pt family member) after ok from patient. Aditi states she is the health care proxy for the patient. Update provided after getting ok from patient.
--- NOTE | 2025-05-26 16:31 | PC.NURSE ---
39 M sts he was bitten by a dog 6 days ago when walking down the street, unknown if vacinated. A+Ox4, calm, cooperative. Pt has small scabbed area on bottom of left leg, no bleeding. Pt denies any pain.
[2025-05-26 17:04] VITALS: BP 110/63; PULSE 59; RESP 18; TEMP -17.7; TEMP 0; O2SAT 97
--- NOTE | 2025-05-26 17:04 | PC.NURSE ---
form faxed to animal control per policy.
== END 2025-05-26 17:04 | disposition home or self-care (01) ==
PROVIDERS: Emergency Provider Emergency Medicine; PCP Nurse Practitioner Family
DX: S81.852A Open bite, left lower leg, initial encounter (principal); W54.0XXA Bitten by dog, initial encounter; Y93.9 Activity, unspecified; Y92.9 Unspecified place or not applicable; Y99.8 Other external cause status; Z20.3 Contact with and (suspected) exposure to rabies; Z29.14 Encounter for prophylactic rabies immune globulin; Z23 Encounter for immunization
CPT/HCPCS: 90375; 90471; 90472; 90675; 90715; 96372; 99282; 99284

== ENCOUNTER 2025-06-09 11:30 | Outpatient (RCR) | payer OTHER, SELFPAY ==
[2025-05-30 14:21] VITALS: BP 129/56; PULSE 62; RESP 18; TEMP 36.6
[2025-05-30] MEDS: Rabies Vaccine (PCEC)/PF 1 ML VIAL IM (14:25)
[2025-06-02 11:13] VITALS: BP 124/63; PULSE 63; RESP 16; TEMP 36.7; O2SAT 98
[2025-06-02] MEDS: Rabies Vaccine (PCEC)/PF 1 ML VIAL IM (11:14)
[2025-06-09 11:35] VITALS: BP 118/56; PULSE 63; RESP 16; TEMP 36.3; O2SAT 96
[2025-06-09] MEDS: Rabies Vaccine (PCEC)/PF 1 ML VIAL IM (11:39)
== END 2025-06-09 11:41 | disposition home or self-care (01) ==
LOC: HO.INF 11:30
PROVIDERS: PCP Nurse Practitioner Family; Visit Provider Physician Assistant
DX: Z20.3 Contact with and (suspected) exposure to rabies (principal); S81.859D Open bite, unspecified lower leg, subsequent encounter; W54.0XXD Bitten by dog, subsequent encounter
CPT/HCPCS: 90471; 90675